=== PATIENT | male | born 1955 | race Caucasian/White ===

== ENCOUNTER 2023-01-10 06:30 | Outpatient (CLI) | payer MEDICARE, OTHER, SELFPAY ==
--- OUTSIDE RECORDS SUMMARY | 2023-01-10 06:38 | XMS_ITS | Patient Health Record ---
Author Name Unknown Organization [facility] Address [address] [place] [address] [address] [place] [address] Care Team Providers Care Industrial Hygienist Name Role Phone Luis FLOYD, Jorje Primary Care Provider Un available Ubaldo Muñoz Unavailable [phone] Saw Duran Unavailable Unavailable Gabriela Vásquez Unavailable [phone] Vanita Cosby Unavailable [phone] ALLERGIES Allergen (clinical drug ingredient) Drug/Non Drug Allergy documented on EMR Reaction Allergy Type Onset Date Status lisinopril Lisinopril (uncoded) cough and itching Allergy Active acetaminophen / oxycodone Percocet (uncoded) Cough and Itching Allergy Active REASON FOR REFERRAL Reason RT L4-S1 RFA Diagnosis 1 Spondylosis without myelopathy or radiculopathy, lumbosacral region (M47.817) Referral Organization [facility] Referring Provider First Name Ubaldo Referring Provider Last Name Toni Referring Provider Speciality Pain Medic ine Referred Organization [facility] Referred Provider Ubaldo Muñoz Referred Address [address] [place] [address] [address], [place],[address], Referred Provider Specialty Pain Medicin e Referral Priority Routine Reason LT L4-S1 RFA Diagnosis 1 Spondylosis without myelopathy or radiculopathy, lumbosacral region (M47.817) Referral Organization [facility] Referring Provider First Name Ubaldo Referring Provider Last Name Toni Referring Provider Speciality Pain Medic ine Referred Organization [facility] Referred Provider Ubaldo Muñoz Referred Address [address] [place] [address] [address],[place], [place],[address], Referred Provider Specialty Pain Medicin e Referral Priority Routine MEDICATIONS Medication SIG (Take, Route, Frequency, Duration) Notes Start Date End Date Status Aspirin 81 81 MG 2 tablet Orally Once a day Active PriLOSEC 20 MG 1 capsule Orally Onc e a day for 30 day(s) 12/24/2018 Active Lachelle 60 MG as directed Orally 12/24/2018 Active Atenolol 25 MG TAKE 1 TABLET BY CRISTINA TH EVERY DAY Oral for 30 Active amLODIPine Besylate 10 MG TAKE 1 TABLET BY MOUTH ONCE DAILY. FOR BLOOD PRESSURE Oral for 10 Active SOCIAL HISTORY Tobacco Use: Social History Observation Description Date Details (start date - stop date) Never Smoker NA - NA Sex Assigned At : Social History Observation Description Sex Assigned At Unknown Tobacco Use/Smoking: Question Answer Notes Are you a nonsmoker Alcohol Screen Question Answer Notes Did you have a drink containing alcohol in the p ast year? No Points 0 Interpretation Negative PROBLEMS Problem Type ICD Code Onset Dates Problem Status W/U Status Risk SNOMED Code Notes Problem Other chronic pain (G89.29) Active confirmed Chronic pain (23371036) Problem Spondylosis without myelopathy or radiculopathy, cervical region (M47.812) Active confirmed Cervical spondylosis without myelopathy (793305617) Problem Spondylosis without myelopathy or radiculopathy, lumbar region (M47.816) Active confirmed Lumbosacral spondylosis without myelopathy (94303367) Problem Spondylosis without myelopathy or radiculopathy, lumbosacral region (M47.817) Active confirmed Lumbosacral spondylosis without myelopathy (60560633) Problem Low back pain (M54.5) Active confirmed Low back pain (673563131) Problem Radiculopathy, lumbosacral region (M54.17) Active confirmed Lumbosacral radiculopathy (1884437) VITAL SIGNS Heart Rate 54 /min 05/13/2022 Respiratory Rate 16 /min 05/13/2022 Oximetry 92 % 05/13/2022 Blood pressure diastolic 80 mm Hg 01/02/2023 Height 72 in 01/02/2023 Blood pressure systolic 136 mm Hg 01/02/2023 Weight 209.8 lbs 01/02/2023 BMI 28.45 kg/m2 01/02/2023 PROCEDURES Procedure Date Ordered Date Performed Result Body Sit e Intervention: 01/02/2023 01/06/2023 sched 01/20 Intervention: 04/18/2022 04/29/202204/29 Pt scheduled 12- 2 Intervention: 03/31/2022 04/11/2022 sched 04/19 Encounters Encounter Location Date Provider Diagnosis [facility] [address] [place] [address] [address] [place] [address] 01/21/2022 Gabriela Vásquez Other chronic pain G89.29 and Radiculopathy, lumbosacral region M54.17 [facility] [address] [place] [address] [address] [place] [address] 03/28/2022 Ubaldo Muñoz [facility] [address] [place] [address] [address] [place] [address] 04/01/2022 Gabriela Thalia Other chronic pain G89.29 and Radiculopathy, lumbosacral region M54.[address] [place] [address] [place] [address] 04/14/2022 Ubaldo Muñoz [facility] [address] [place] [address] [address] [place] [address] 04/15/2022 Ubaldo Muñoz [address] [place] [address] [place] [address] 04/19/2022 [facility] [address] [facility] [address] [place] [address] 05/11/2022 [facility] [address] [facility] [address] [place] [address] 05/13/2022 [facility] [address] [place] [address] 05/13/2022 Ubaldo Muñoz Spondylosis without myelopathy or radiculopathy, cervical region M47.812 and Spondylosis without myelopathy or radiculopathy, lumbosacral region M47.817 [facility] [address] [place] [address] [address] [place] [address] 01/02/2023 Vanita Cosby Other chronic pain G89.29 and Spondylosis without myelopathy or radiculopathy, lumbosacral region M47.817 [facility] [address] [place] [address] [address] [place] [address] 01/05/2023 Ubaldo Muñoz ASSESSMENTS Encounter Date Diagnosis Assessment Notes Treatment Notes Treatment Clinical Notes 01/02/2023 Other chronic pain (ICD-10 - G89.29) Miguel returns to clinic today for a follow up evaluation regarding his chronic neck and low back pain. We discussed his current symptoms. His axial low back pain is consistent with the chronic pain he experienced prior to the bilateral L4-S1 RFA. Given the significant pain relief as a result of this procedure, I recommend repeating the bilateral L4-S1 RFAs. He expressed interest and orders were placed. Miguel will proceed with a right hip tendon repair surgery on 01/10/2023 in the interim. This treatment plan was reviewed with Miguel, and he was agreeable. I will continue to monitor his progress, and he will follow up in one month or sooner if needed. Plan:1. Order repeat bilateral L4-S1 RFAs2. Proceed with right hip tendon repair surgery as scheduled3. Follow up as needed Discharge instructions reviewed verbally. The patient was instructed to return to the office as scheduled and call with any questions, problems or concerns. 01/02/2023 Spondylosis without myelopathy or radiculopathy, lumbosacral region (ICD-10 - M47.817) 01/21/2022 Other chronic pain (ICD-10 - G89.29) Miguel returns to clinic today for a follow up evaluation regarding his chronic low back, neck and right LE pain. We discussed his current symptoms and medications. I will consider repeat cervical and lumbar RFAs if Miguel's pain were to return to baseline. I informed him that he should continue to notice improvement with the cervical RFAs. I have reviewed the [place] [employer] database and did not find any inconsistencies. I will start Miguel on Flexeril 5MG to provide further management of his pain while he is healing from the RFAs. This treatment plan was reviewed with the patient, and he was agreeable. I will continue to monitor his progress and he will follow up as needed. Plan:1. Consider repeat RFAs as needed2. Start Flexeril 5MG3. Follow up as needed Discharge instructions reviewed verbally. Discussed the risks/benefits of prescribed medication. The patient was instructed to return to the office as scheduled and call with any questions, problems or concerns. 01/21/2022 Radiculopathy, lumbosacral region (ICD-10 - M54.17) 05/13/2022 Spondylosis without myelopathy or radiculopathy, cervical region (ICD-10 - M47.812) 04/01/2022 Other chronic pain (ICD-10 - G89.29) 04/01/2022 Radiculopathy, lumbosacral region (ICD-10 - M54.17) 05/13/2022 Spondylosis without myelopathy or radiculopathy, lumbosacral region (ICD-10 - M47.817) 01/21/2022 Other I, bradly Hull serving as a scribe to document services personally performed by Gabriela Vásquez PA-C, based upon my observations and the provider's statements to me. All documentation has been reviewed by the aforementioned PAEspinoza. I, Gabriela Vásquez PA-C, attest that the above named individual is acting in scribe capacity, has observed my performance of the services and has documented them in accordance with my direction. The documentation recorded by the scribe accurately reflects the service I personally performed and the decisions made during the clinic visit. 04/01/2022 Other Melania Ledbetter , am serving as a scribe to document services personally performed by Gabriela Vásquez PA-C, based upon my observations and the provider's statements to me. All documentation has been reviewed by the aforementioned PAEspinoza. Khloe, Gabriela Vásquez PA-C, attest that the above named individual is acting in scribe capacity, has observed my performance of the services and has documented them in accordance with my direction. The documentation recorded by the scribe accurately reflects the service I personally performed and the decisions made during the clinic visit. 05/13/2022 Other The patient is medically appropriate for a procedure at [facility] and wishes to proceed. Ok to proceed with the intervention at [facility]. 01/02/2023 Other I, Nannette harmon, am serving as a scribe to document services personally performed by Vanita Cosby PA-C, based upon my observations and the provider's statements to me. All documentation has been reviewed by the aforementioned PAEspinoza. Khloe, Vanita Cosby PA-C, attest that the above named individual is acting in scribe capacity, has observed my performance of the services and has documented them in accordance with my direction. The documentation recorded by the scribe accurately reflects the service I personally performed and the decisions made during the clinic visit. PLAN OF TREATMENT Next Appt Details Provider Name:Ubaldo Cordoba Antonieta slater, 01/20/2023 12:45:00 PM, [address] [facility] [facility], [address], [place], [address], Insurance Providers Payer Name Payer Address Payer Phone Subscriber Number Group Number Insured Name Patient Relationship to Insured Coverage Start Date Coverage End Date Medicare Part B [employer] [address] [place] [address] [id number] Miguel Love Self - patient is the insured 3 [facility] [address] [place] [address] [id number] Miguel Love Self - patient is the insured 1 1 MEDICAL (GENERAL) HISTORY Medical History History ICD Code Asthma Arthritis Hypertension Acid Reflux Blood Clots Surgical History Surgery Date(Month/Year) Left TKA Multiple Bilateral Knee Surgeries Right Shoulder Rotator Cuff Repair Left Shoulder Debridement Hospitalization History Reason Date(Month/Year) Sister Josias - [place] Lumbar Reduction 01/08/1979
[2023-01-10 07:05] VITALS: BP 147/79; PULSE 68; RESP 18; O2SAT 96
[2023-01-10 08:31] VITALS: BP 146/82; PULSE 65; RESP 16; O2SAT 96
== END 2023-01-10 06:31 | disposition home or self-care (01) ==
PROVIDERS: Visit Provider Family Medicine
DX: M62.89 Other specified disorders of muscle (principal); M76.899 Other specified enthesopathies of unspecified lower limb, excluding foot
CPT/HCPCS: 27006; 76942; J0665

== ENCOUNTER 2023-05-19 14:45 | Outpatient (RCR) | payer MEDICARE, OTHER, SELFPAY ==
--- NOTE | 2023-03-31 11:08 | PT.OPEX ---
[facility] Eval [facility] Outpatient Eval Start: 03/17/23 13:06 Freq: Status: Active Protocol: Document 03/17/23 13:15 HN (Rec: 03/17/23 18:04 HN [id number]) E-signed By Diana Echeverria DPT Physical Therapy Outpatient Evaluation Insurance Information Recert Due Date 06/14/23 Insurance Name Medicare B Insurance Information/Comments [employer] Medical Diagnosis Pain in right hip M25.551 Treating Diagnosis Pain in right hip M25.551 Referring MD Sonido Prakash MD Subjective Subjective Patient is a 67 year old male with R hip pain with 10 month history of pain. Pt has attempted 3 weeks of PT but did not notice much of a difference, received cortisone injection, received tenex procedure 01/27/23 no change in hip pain. Denies numbness and tingling. Has history of low back pain with relief with injections that eventually plateaued. Receiving nerve ablations with relief in low back. Numbness in lateral 3 toes. Pain characteristics: strong ache, very painful along lateral hip and glute radiating down lateral thigh Aggravating factors: painful to walk up stairs, sitting, first few steps are painful, sleeping on R side is pain, prolonged walking and standing Easing Factors: Tylenol gives some relief, aleve, rest Prior level of function: unlimited with all ADLs and IADLs, Current limitations: prolonged sitting, standing, walking, stairs, sleeping on R hip Red flags: denies hx of cancer , recent infection, numbness/ tingling, bowel/bladder changes Imaging: see medical chart PMH: left knee replacement in 2011, HTN managed with medication, asthma, allergies, prostate cancer diagnosed last year followed by oncologist, no current interventions Social History: , [place], 2 story home with railing on R enjoys hunting, 2 dogs, injury has been greatly decreased physical activity. 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[place], international logistics manager, at [employer] Pain Comments Current: 01/19 Best: 10/19 Worst: 03/21 Current Work Status Patient Registration Clerk Preferred Name Miguel Felipe Weight Bearing Status Full Weight Bearing Therapy Limitations/Systems Review Not Limited Objective Other/Pertinent Objective Hip range of motion (degrees) within normal limits Manual muscle testing: Hip flexion: 5/5 L , 3+/5 R increased pain Hip abduction: 5/5 L , 3/5 R increased pain Hip adduction: deferred Hip extension: deferred Knee extension: 5/5 L , 4/5 R mild increase in pain Knee flexion: 5/5 L , 4-/5 R mild increase in pain Ankle DF: 5/5 L , 5/5 R Ankle PF: 5/5 L , 5/5 R Special tests: Slump: negative on L, increased pain in R, no reproduction of numbness tingling Straight leg raise: negative on L, increased pain in R, no reproduction of numbness tingling JULIO CESAR: negative bilaterally FADIR: negative bilaterally SCOUR: negative bilaterally Palpation: Increased tenderness along glute med/ piriformis/ITB Assessment Assessment/Impression Patient is a 67 year old with complaints of R hip pain with chronic 8 month history. Patient demonstrates impaired R hip strength, increased pain along glute and ITB, increased pain with sleeping on R and ascending stairs consistent with glute min/med tendinopathy with potential contributions from low back pain and hamstring tendinopathy. The impairments impact the patient's prolonged standing, sitting, walking, stair and curb navigation and participation in ADLs and IADLs. Patient will benefit from skilled physical therapy to address the impairments and activity limitations listed above. Prognostic factors include chronic nature of symptoms and increased attempts and treatment. Primary Functional Limitations prolonged standing, sitting, walking, stair and curb navigation and participation in ADLs and IADLs Plan of Care Rehabilitation Potential Good Physical Therapy Goals Short term goals ( 6 weeks ) 1. Patient will tolerate walking >15 minutes with no increase in pain order to complete ADLs 2. Patient will report <6/10 pain at worst in order to demonstrate decreased pain and disability related to symptoms 3. Patient will demonstrate 4/ 5 hip abduction strength on R with no increase in pain in order to improved tolerance with ambulation and stairs. rodent exterminator goals (12 weeks ) 1. Patient will demonstrate MMT of 4+/5 in hip and LE in order to demonstrate improved tolerance with lifting, carrying groceries. 2. Patient will complete 5 time sit to cyber systems engineer 12 second or less with no increase in pain in order to demonstrate improved tolerance with transfers. 3. Patient will tolerate ambulation 30 minutes or greater with no increase in pain in order perform ADLs and IADLs 4. Patient will report <4/10 pain at worst in order to demonstrate decreased pain and disability related to symptoms. 5. Patient will ascend/descend 2 flight of stairs reciprocally with no increase in pain in order to safely navigate home. Coordination/Communication With Referral Source Treatment Plan/Direct Interventions Electrical Stimulation,Joint Mobilization,Manual Therapy, Neuromuscular Re-ed,Self-Care/ Home Management,Therapeutic Activities,Therapeutic Exercises,Ultrasound Frequency/Duration 1x/week for up to 12 weeks Patient Will Be Discharged From Therapy Completion of LTG(s) Evaluation Billing Untimed Code Treatment Minutes 20 Complexity Low Certification Information Initial Certification Date 03/17/23 Ending Certification Date 06/14/23 Provider Signature Shows Agreement With POC & Medical Necessity Physician Signature & Date Requested Please Sign/Date Here Physician Comment/Change : Physician NPI Number #
== END 2023-05-25 14:37 | disposition home or self-care (01) ==
PROVIDERS: Visit Provider Orthopaedic Surgery
DX: M25.551 Pain in right hip (principal); Z51.89 Encounter for other specified aftercare
CPT/HCPCS: 97110; 97140; 97161

== ENCOUNTER 2023-08-11 13:15 | Outpatient (RCR) | payer MEDICARE, OTHER, SELFPAY | END 2023-12-09 23:59 | disposition home or self-care (01) | PROVIDERS: PCP Family Medicine; Visit Provider Family Medicine | DX: S76.111A Strain of right quadriceps muscle, fascia and tendon, initial encounter (principal); Z51.89 Encounter for other specified aftercare | CPT/HCPCS: 97110; 97140; 97162 ==